=== PATIENT | female | born 2000 | race Caucasian/White ===

== ENCOUNTER 2018-06-24 00:59 | Emergency (ER) | payer BC, OTHER ==
[~2018-06-24] VITALS: Ht 167.6 cm; Wt 63.5 kg
[2018-06-24] MEDS ORDERED: LIDOCAINE/EPI 2% 1:100,00 (XYLOCAINE) 20 ML VIAL ONE (01:12)
[2018-06-24] MEDS ORDERED: LIDOCAINE/EPI 2% 1:100,00 (XYLOCAINE) 20 ML VIAL INJ ONE (01:15)
[2018-06-24] MEDS ORDERED: RX-TRIMETH/SULFA. 160-800 MG (BACTRIM DS) TAB PPK#2 PO STA (01:25)
[2018-06-24] MEDS ORDERED: SULF1TAB35 PO (01:28)
--- NOTE | 2018-06-24 01:28 | ED Upper Extremity ---
General Chief Complaint: Laceration Stated Complaint: RT WRIST LAC WASHING DISHES Nursing Triage Note: right arm laceration Nursing Sepsis Screen: No Definite Risk Source: patient History of Present Illness Date Seen by Provider: Jun 24, 2018 Time Seen by Provider: 01:07 Initial Comments PT C/O LACERATION TO RIGHT FOREARM AT APPROXIMATELY 0045 AT HOME STATES SHE WAS WASHING DISHES AND CUT ARM ON BROKEN CUP NO PARESTHESIAS OR MOTOR DEFICITS PT IS UP TO DATE ON TETANUS VACCINATION Allergies and Home Medications Allergies Coded Allergies: No Known Drug Allergies (Unverified , 06/24/18) Home Medications Sulfamethoxazole/Trimethoprim 1 Each Tablet, 1 EACH PO BID Prescribed by: JASON PADILLA on 06/24/18 0128 Patient Home Medication List Home Medication List Reviewed: Yes Constitutional: no symptoms reported Musculoskeletal: see HPI Skin: see HPI Psychiatric/Neurological: No Symptoms Reported Past [id number] Hx Patient Social History Alcohol Use: Denies Use Recreational Drug Use: No Smoking Status: Never a Smoker 2nd Hand Smoke Exposure: No Recent Foreign Travel: No Contact w/Someone Who Travel: No Recent Infectious Disease Expo: No Recent Hopitalizations: No Immunizations Up To Date Tetanus Booster (TDap): Less than 5yrs PED Vaccines UTD: Yes Seasonal Allergies Seasonal Allergies: No Past Medical History Surgeries: No Respiratory: No Cardiac: No Neurological: No : No Genitourinary: No Gastrointestinal: No Musculoskeletal: No Endocrine: No HEENT: No Cancer: No Psychosocial: No Integumentary: No Blood Disorders: No Physical Exam Vital Signs Vital Signs - First Documented 06/24/18 01:08 Temp 97.1 Pulse 79 Resp 18 B/P (MAP) 136/76 (96) Pulse Ox 97 O2 Delivery Room Air Capillary Refill : Less Than 3 Seconds Height, Weight, BMI Height: 5'6.00" Weight: 140lbs. oz. [id number]; BMI Method:Estimated General Appearance: WD/WN, no apparent distress Elbow/Forearm: Right (4 CM SUB Q LACERATION TO ANTERIOR ASPECT OF RIGHT DISTAL FOREARM. NO BLEEDING AT THIS TIME. 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, no motor/sensory deficits, alert, oriented x 3 Skin: normal color, warm/dry, other ( ABOVE) Procedures/Interventions Other Wound Location RIGHT FOREARM Wound Length (cm): 4 Wound's Depth, Shape: linear, sub Q Wound Explored: clean Irrigated w/ Saline (ccs): 50 Betadine Prep?: No (BETASEPT) Anesthesia: Lidocaine w/ Epi (2%) Staple Repair: Stapler 35W (#7) Progress/Results/Core Measures Results/Orders My Orders Orders - JASON PADILLA DO Lidocaine/Epi 2% 1:100,000 (Xylocaine/Ep (06/24/18 01:15) Lidocaine/Epi 2% 1:100,000 (Xylocaine/Ep (06/24/18 01:12) Rx-Trimeth/Sulfameth Ds Tab (Rx-Bactrim/ (06/24/18 01:25) Wound Dressing-Ed (06/24/18 01:28) Medications Given in ED Current Medications Medications Dose Ordered Sig/Ofelia Route Start Time Stop Time Status Last Admin Dose Admin Lidocaine/ Epinephrine 20 ml ONCE ONCE INJ 06/24/18 01:15 06/24/18 01:16 DC 06/24/18 01:16 20 ML Vital Signs/I&O 06/24/18 06/24/18 01:08 01:31 Temp 97.1 97.1 Pulse 79 79 Resp 18 18 B/P (MAP) 136/76 (96) 136/76 (96) Pulse Ox 97 97 O2 Delivery Room Air Blood Pressure Mean: 96 Departure Impression Primary Impression: Laceration of right forearm Disposition: 01 HOME, SELF-CARE Condition: Stable Departure-Patient Inst. Referrals: NO,LOCAL PHYSICIAN (PCP/Family) Primary Care Physician Patient Instructions: Laceration Repair With [place] (DC) Add. Discharge Instructions: CLEAN WOUND TWICE A DAY WITH ANTIBACTERIAL SOAP AND WATER, OTHERWISE KEEP CLEAN AND DRY TYLENOL AND MOTRIN NEEDED FOR PAIN HERB OUT IN 10 DAYS--RETURN TO ER FOR REMOVAL All discharge instructions reviewed with patient and/or family. Voiced understanding. Scripts Sulfamethoxazole/Trimethoprim (Bactrim Ds Tablet) 1 Each Tablet 1 EACH PO BID, #20 TAB Prov: JASON PADILLA DO 06/24/18 JASON PADILLA DO Jun 24, 2018 01:28
[2018-06-24 01:31] VITALS: BP 136/76
== END 2018-06-24 01:35 | disposition home or self-care (01) ==
LOC: ER 01:03
DX: S51.811A Laceration without foreign body of right forearm, initial encounter (principal); W26.8XXA Contact with other sharp object(s), not elsewhere classified, initial encounter; Y93.G1 Activity, food preparation and clean up
CPT/HCPCS: 99284

== ENCOUNTER 2018-07-04 12:12 | Emergency (ER) | payer BC ==
[~2018-07-04] VITALS: Ht 160 cm; Wt 63.5 kg
[~2018-07-04 12:12] MED LIST: SULF1TAB35 PO
[2018-07-04 12:56] VITALS: BP 125/63
== END 2018-07-04 12:54 | disposition home or self-care (01) ==
LOC: EDUNIT# 12:12 → ER 12:14
DX: S51.811D Laceration without foreign body of right forearm, subsequent encounter (principal); X58.XXXD Exposure to other specified factors, subsequent encounter